=== PATIENT | male | born 1955 | race Caucasian/White ===

== ENCOUNTER 2018-07-03 05:40 | Inpatient (IN) | payer BC ==
[2018-06-28 17:18] LABS: BILIRUBIN,URINE NEGATIVE (NEGATIVE); BLOOD, URINE NEGATIVE (NEGATIVE); CLARITY/URINE CLEAR (CLEAR); COLOR,URINE YELLOW (YELLOW); GLUCOSE,URINE NEGATIVE (NEGATIVE); KETONES,URINE NEGATIVE (NEGATIVE); LEUKOCYTE ESTERASE ,URINE NEGATIVE (NEGATIVE); NITRITE, URINE NEGATIVE (NEGATIVE); PH,URINE 6.5 (5.0-8.0); PROTEIN URINE NEGATIVE (NEGATIVE); UROBILINOGEN,URINE 0.2 (0.2-1.0)
[2018-06-28 17:28] LABS: CALCIUM 9.3 mg/dL (8.4-11.0); CREATININE 0.84 mg/dL (0.55-1.30); POTASSIUM 4.2 mmol/L (3.5-5.1)
[2018-06-28 17:40] LABS: PROTHROMBIN TIME 9.8 SECS (9.5-12.5)
[2018-06-28 17:58] LABS: BASOPHILS # (AUTO) 0.1 K/uL (0.0-0.2); BASOPHILS % (AUTO) 0.8 % (0.0-2.0); EOSINOPHILS # (AUTO) 0.3 K/uL (0.0-0.4); EOSINOPHILS % (AUTO) 3.7 % (0.0-4.0); HEMATOCRIT 42.2 % (36-54); HEMOGLOBIN 13.6 g/dL (14.0-18.0); LYMPHOCYTES # (AUTO) 2.4 K/uL (1.0-5.5); LYMPHOCYTES % (AUTO) 31.6 % (20.5-51.5); MEAN CORPUSCULAR HEMOGLOBIN 32 pg (27-31); MEAN CORPUSCULAR HGB CONC 32 % (32-36); MEAN CORPUSCULAR VOLUME 98 fL (79.0-98.0); MONOCYTES % (AUTO) 12.5 % (1.7-9.3); NEUTROPHILS # (AUTO) 3.9 K/uL (1.8-7.7); NEUTROPHILS % (AUTO) 51.4 % (40.0-70.0); PLATELET COUNT (AUTO) 236 K/uL (130-430); RED BLOOD CELL COUNT(AUTO) 4.31 MIL/uL (4.2-6.2); RED CELL DISTRIBUTION WIDTH 12.6 % (9.0-15.0); WHITE BLOOD COUNT (AUTO) 7.7 K/uL (4.8-10.8)
[~2018-07-03] VITALS: Ht 180.3 cm; Wt 95.3 kg
[2018-07-03] MEDS ORDERED: PRAV40TA PO (06:20)
[2018-07-03] MEDS ORDERED: oxyCODONE HCL 10 MG TAB.ER.12H PO ONE ×2 (06:30→06:38)
[2018-07-03] MEDS ORDERED: ACETAMINOPHEN 500 MG TABLET PO ONE (06:30)
[2018-07-03] MEDS ORDERED: TRANEXAMIC ACID 650 MG TABLET PO ONE (06:30)
[2018-07-03] MEDS ORDERED: GABAPENTIN 300 MG CAPSULE PO ONE (06:30)
[2018-07-03] MEDS ORDERED: CEFAZOLIN 2 GM IVPB PREMIX 50 ML IV ONE ×2 (06:30→06:37)
[2018-07-03] MEDS ORDERED: CELECOXIB 200 MG CAPSULE PO ONE (06:30)
[2018-07-03] MEDS ORDERED: NACL 0.9% 1,000 ML IV ONE (06:30)
[2018-07-03] MEDS ORDERED: ACETAMINOPHEN 500 MG TABLET ONE (06:37)
[2018-07-03] MEDS ORDERED: CELECOXIB 200 MG CAPSULE ONE (06:38)
[2018-07-03] MEDS ORDERED: TRANEXAMIC ACID 650 MG TABLET ONE (06:39)
[2018-07-03] MEDS ORDERED: GABAPENTIN 300 MG CAPSULE ONE (06:39)
[2018-07-03] MEDS ORDERED: NS 50 ML BAG IV ONE (06:55)
[2018-07-03] MEDS ORDERED: fentaNYL CITRATE 250 MCG/5 ML AMP IV ONE (06:55)
[2018-07-03] MEDS ORDERED: ATROPINE SULFATE 0.4 MG/ML VIAL IVP ONE (06:55)
[2018-07-03] MEDS ORDERED: ROPIVACAINE HCL/PF 0.2% (NAROPIN) 200 ML PLAST..BAG EP ONE (06:55)
[2018-07-03] MEDS ORDERED: ROCURONIUM BROMIDE 10 MG/ML (ZEMURON) IV ONE (06:55)
[2018-07-03] MEDS ORDERED: PROPOFOL 200MG/ 20ML VIAL (DIPRIVAN) IV ONE (06:55)
[2018-07-03] MEDS ORDERED: DEXAMETHASONE SOD PHOSPHATE 4 MG/ML VIAL IVP ONE (06:55)
[2018-07-03] MEDS ORDERED: MIDAZOLAM HCL 5 MG/5 ML VIAL IVP ONE (06:55)
[2018-07-03] MEDS ORDERED: MORPHINE SULFATE 10MG/10ML PF AMP EP ONE (06:55)
[2018-07-03] MEDS ORDERED: KETOROLAC TROMETHAMINE 30 MG VIAL IVP ONE (06:55)
[2018-07-03] MEDS ORDERED: TRANEXAMIC ACID 1,000 MG/10 ML VIAL IV ONE (06:55)
[2018-07-03] MEDS ORDERED: LR 1,000 ML IV.SOLN IV ONE (06:55)
[2018-07-03] MEDS ORDERED: SEVOFLURANE 15 MIN GAS INH ONE (06:55)
[2018-07-03] MEDS ORDERED: NORMAL SALINE 10 ML VIAL IVP ONE (06:55)
[2018-07-03] MEDS ORDERED: ROPIVACAINE HCL/PF 5 MG/ML 0.5% 30 ML VIAL INJ ONE (06:55)
[2018-07-03] MEDS ORDERED: EPINEPHrine 1 MG/ML AMP IV ONE (06:55)
[2018-07-03] MEDS ORDERED: POLYMYXIN 500,000/BACIT.10,000 UNITS in NS IRR 1 L IR ONE (07:04)
[2018-07-03] MEDS ORDERED: LR 1,000 ML IV SCH (08:24)
[2018-07-03] MEDS ORDERED: ROPIVACAINE 0.2% 100 ML INJ SCH (08:24)
[2018-07-03] MEDS ORDERED: HYDROmorphone 1 MG INJ. 1 MG/ML AMPUL IVP PRN (08:30)
[2018-07-03] MEDS ORDERED: MEPERIDINE HCL/PF 25 MG/ML DISP.SYRIN IVP PRN (08:30)
[2018-07-03] MEDS ORDERED: HYDROcodone/ACETAMIN 10-325 MG TAB PO PRN ×2 (08:30)
[2018-07-03] MEDS ORDERED: HYDROmorphone 2 MG/ML VIAL IVP PRN ×2 (08:30)
[2018-07-03] MEDS ORDERED: KETOROLAC TROMETHAMINE 15 MG VIAL IVP PRN (09:15)
[2018-07-03] MEDS ORDERED: PROMETHAZINE HCL 25 MG/ML AMP IVP PRN (09:15)
[2018-07-03] MEDS ORDERED: DIPHENHYDRAMINE HCL 25 MG CAPSULE PO PRN (09:15)
[2018-07-03] MEDS ORDERED: MORPHINE 4 MG/ML INJ. SYRINGE IVP PRN (09:15)
[2018-07-03] MEDS ORDERED: ONDANSETRON HCL 4 MG/2 ML VIAL IVP PRN (09:15)
[2018-07-03] MEDS ORDERED: SENNOSIDES 8.6 MG TABLET PO PRN (09:15)
[2018-07-03] MEDS ORDERED: oxyCODONE HCL 5 MG TABLET PO PRN (09:15)
[2018-07-03] MEDS ORDERED: KETOROLAC TROMETHAMINE 30 MG VIAL IVP PRN (09:15)
[2018-07-03] MEDS ORDERED: HYDROmorphone 2 MG/ML VIAL ONE (10:03)
[2018-07-03 10:42] VITALS: BP_SYST 115
[2018-07-03] MEDS: D5LR 1,000 ML IV SCH ×2 (11:44→22:34)
[2018-07-03] MEDS: ROPIVACAINE 0.2% 550 ML INJ SCH (12:03)
[2018-07-03] MEDS: CEFAZOLIN 1 GM IVPB PREMIX 50 ML IV SCH ×2 (13:48→21:18)
[2018-07-03] MEDS: ACETAMINOPHEN 500 MG TABLET PO SCH ×2 (15:52→21:11)
[2018-07-03] MEDS ORDERED: RIVAROXABAN 10 MG TABLET PO ONE (16:00)
[2018-07-03 16:20] VITALS: BP_SYST 122
[2018-07-03 20:00] VITALS: BP_SYST 124
[2018-07-03] MEDS: GABAPENTIN 300 MG CAPSULE PO SCH (21:10)
[2018-07-03] MEDS: CELECOXIB 200 MG CAPSULE PO SCH (21:10)
[2018-07-03] MEDS: oxyCODONE HCL 5 MG TABLET PO PRN (23:21)
[2018-07-04 00:37] VITALS: BP_SYST 117
[2018-07-04] MEDS: D5LR 1,000 ML IV SCH ×2 (05:15→15:15)
[2018-07-04] MEDS: CEFAZOLIN 1 GM IVPB PREMIX 50 ML IV SCH (05:25)
[2018-07-04 06:40] LABS: CALCIUM 8.4 mg/dL (8.4-11.0); CREATININE 0.85 mg/dL (0.55-1.30); POTASSIUM 3.9 mmol/L (3.5-5.1)
[2018-07-04 06:52] LABS: BASOPHILS % (AUTO) 0.1 % (0.0-2.0); EOSINOPHILS % (AUTO) 0.1 % (0.0-4.0); HEMATOCRIT 33.3 % (36-54); HEMOGLOBIN 11.1 g/dL (14.0-18.0); LYMPHOCYTES # (AUTO) 1.8 K/uL (1.0-5.5); LYMPHOCYTES % (AUTO) 12.5 % (20.5-51.5); MEAN CORPUSCULAR HEMOGLOBIN 33 pg (27-31); MEAN CORPUSCULAR HGB CONC 33 % (32-36); MEAN CORPUSCULAR VOLUME 98 fL (79.0-98.0); MONOCYTES # (AUTO) 1.5 K/uL (0.0-1.0); MONOCYTES % (AUTO) 10.4 % (1.7-9.3); NEUTROPHILS # (AUTO) 11.3 K/uL (1.8-7.7); NEUTROPHILS % (AUTO) 76.9 % (40.0-70.0); PLATELET COUNT (AUTO) 200 K/uL (130-430); RED BLOOD CELL COUNT(AUTO) 3.39 MIL/uL (4.2-6.2); RED CELL DISTRIBUTION WIDTH 12.7 % (9.0-15.0); WHITE BLOOD COUNT (AUTO) 14.6 K/uL (4.8-10.8)
[2018-07-04 08:00] VITALS: BP_SYST 139
[2018-07-04] MEDS: SIMVASTATIN 20 MG TABLET PO SCH (08:37)
[2018-07-04] MEDS: CELECOXIB 200 MG CAPSULE PO SCH ×2 (08:37→21:19)
[2018-07-04] MEDS: ACETAMINOPHEN 500 MG TABLET PO SCH ×3 (08:38→21:19)
[2018-07-04] MEDS: RIVAROXABAN 10 MG TABLET PO SCH (08:39)
[2018-07-04] MEDS: ROPIVACAINE 0.2% 550 ML INJ SCH (09:15)
[2018-07-04 12:50] VITALS: BP_SYST 107
[2018-07-04 16:42] VITALS: BP_SYST 114
[2018-07-04 20:00] VITALS: BP_SYST 117
[2018-07-04] MEDS: GABAPENTIN 300 MG CAPSULE PO SCH (21:19)
[2018-07-05 01:15] VITALS: BP_SYST 108
[2018-07-05] MEDS: D5LR 1,000 ML IV SCH (01:15)
[2018-07-05 06:55] LABS: BASOPHILS # (AUTO) 0.2 K/uL (0.0-0.2); BASOPHILS % (AUTO) 1.8 % (0.0-2.0); EOSINOPHILS # (AUTO) 0.2 K/uL (0.0-0.4); EOSINOPHILS % (AUTO) 1.8 % (0.0-4.0); HEMATOCRIT 31.9 % (36-54); HEMOGLOBIN 10.4 g/dL (14.0-18.0); LYMPHOCYTES # (AUTO) 1.8 K/uL (1.0-5.5); LYMPHOCYTES % (AUTO) 16.8 % (20.5-51.5); MEAN CORPUSCULAR HEMOGLOBIN 32 pg (27-31); MEAN CORPUSCULAR HGB CONC 33 % (32-36); MEAN CORPUSCULAR VOLUME 99 fL (79.0-98.0); MONOCYTES # (AUTO) 1.3 K/uL (0.0-1.0); MONOCYTES % (AUTO) 12.3 % (1.7-9.3); NEUTROPHILS # (AUTO) 7.4 K/uL (1.8-7.7); NEUTROPHILS % (AUTO) 67.3 % (40.0-70.0); PLATELET COUNT (AUTO) 175 K/uL (130-430); RED BLOOD CELL COUNT(AUTO) 3.23 MIL/uL (4.2-6.2); RED CELL DISTRIBUTION WIDTH 12.6 % (9.0-15.0)
[2018-07-05 07:05] LABS: CALCIUM 8.7 mg/dL (8.4-11.0); CREATININE 0.81 mg/dL (0.55-1.30)
[2018-07-05 07:18] LABS: WHITE BLOOD COUNT (AUTO) 10.9 K/uL (4.8-10.8)
[2018-07-05 08:14] VITALS: BP_SYST 145
[2018-07-05] MEDS: CELECOXIB 200 MG CAPSULE PO SCH ×2 (09:15→20:26)
[2018-07-05] MEDS: ROPIVACAINE 0.2% 550 ML INJ SCH (09:15)
[2018-07-05] MEDS: SIMVASTATIN 20 MG TABLET PO SCH (09:16)
[2018-07-05] MEDS: oxyCODONE HCL 5 MG TABLET PO PRN ×3 (09:16→23:17)
[2018-07-05] MEDS: ACETAMINOPHEN 500 MG TABLET PO SCH ×3 (09:17→20:28)
[2018-07-05 10:37] LABS: BASOPHILS % (AUTO) 0.2 % (0.0-2.0); EOSINOPHILS # (AUTO) 0.2 K/uL (0.0-0.4); EOSINOPHILS % (AUTO) 1.3 % (0.0-4.0); HEMOGLOBIN 9.9 g/dL (14.0-18.0); LYMPHOCYTES # (AUTO) 1.7 K/uL (1.0-5.5); LYMPHOCYTES % (AUTO) 14.7 % (20.5-51.5); MEAN CORPUSCULAR HEMOGLOBIN 30 pg (27-31); MEAN CORPUSCULAR HGB CONC 31 % (32-36); MEAN CORPUSCULAR VOLUME 98 fL (79.0-98.0); MONOCYTES # (AUTO) 1.3 K/uL (0.0-1.0); MONOCYTES % (AUTO) 10.8 % (1.7-9.3); NEUTROPHILS # (AUTO) 8.4 K/uL (1.8-7.7); PLATELET COUNT (AUTO) 174 K/uL (130-430); RED BLOOD CELL COUNT(AUTO) 3.26 MIL/uL (4.2-6.2); RED CELL DISTRIBUTION WIDTH 12.9 % (9.0-15.0); WHITE BLOOD COUNT (AUTO) 11.6 K/uL (4.8-10.8)
[2018-07-05 11:01] LABS: CALCIUM 8.4 mg/dL (8.4-11.0); CREATININE 0.94 mg/dL (0.55-1.30); POTASSIUM 3.8 mmol/L (3.5-5.1)
[2018-07-05 11:06] LABS: ALBUMIN 2.9 g/dL (3.4-4.8); TOTAL BILIRUBIN 0.4 mg/dL (0.0-1.0)
[2018-07-05] MEDS: RIVAROXABAN 10 MG TABLET PO SCH (11:09)
[2018-07-05 12:34] VITALS: BP_SYST 122
[2018-07-05 16:16] VITALS: BP_SYST 116
[2018-07-05 20:00] VITALS: BP_SYST 115
[2018-07-06] VITALS (10 sets, daily range): BP systolic 84–140
[2018-07-06 07:23] LABS: BASOPHILS # (AUTO) 0.1 K/uL (0.0-0.2); BASOPHILS % (AUTO) 0.6 % (0.0-2.0); EOSINOPHILS # (AUTO) 0.1 K/uL (0.0-0.4); EOSINOPHILS % (AUTO) 1.5 % (0.0-4.0); HEMATOCRIT 29.5 % (36-54); LYMPHOCYTES # (AUTO) 1.3 K/uL (1.0-5.5); LYMPHOCYTES % (AUTO) 13.8 % (20.5-51.5); MEAN CORPUSCULAR HEMOGLOBIN 33 pg (27-31); MEAN CORPUSCULAR HGB CONC 34 % (32-36); MEAN CORPUSCULAR VOLUME 98 fL (79.0-98.0); MONOCYTES # (AUTO) 1.2 K/uL (0.0-1.0); MONOCYTES % (AUTO) 12.5 % (1.7-9.3); NEUTROPHILS # (AUTO) 6.7 K/uL (1.8-7.7); NEUTROPHILS % (AUTO) 71.6 % (40.0-70.0); PLATELET COUNT (AUTO) 172 K/uL (130-430); RED BLOOD CELL COUNT(AUTO) 3.02 MIL/uL (4.2-6.2); RED CELL DISTRIBUTION WIDTH 12.9 % (9.0-15.0); WHITE BLOOD COUNT (AUTO) 9.4 K/uL (4.8-10.8)
[2018-07-06 07:30] LABS: CALCIUM 8.7 mg/dL (8.4-11.0); CREATININE 0.88 mg/dL (0.55-1.30); POTASSIUM 4.1 mmol/L (3.5-5.1)
[2018-07-06] MEDS: CELECOXIB 200 MG CAPSULE PO SCH (08:37)
[2018-07-06] MEDS: SIMVASTATIN 20 MG TABLET PO SCH (08:38)
[2018-07-06] MEDS: ACETAMINOPHEN 500 MG TABLET PO SCH ×3 (08:38→20:21)
[2018-07-06] MEDS: oxyCODONE HCL 5 MG TABLET PO PRN ×2 (10:46→22:29)
[2018-07-06] MEDS: RIVAROXABAN 10 MG TABLET PO SCH (12:34)
[2018-07-06] MEDS ORDERED: MULTIVITS,CA,MINERALS/IRON/FA 1 TABLET PO ONE (16:30)
[2018-07-06] MEDS ORDERED: MAGNESIUM OXIDE 400 MG TABLET PO ONE (16:30)
[2018-07-06] MEDS ORDERED: CHOLECALCIFEROL (VITAMIN D3) 2,000 UNIT TABLET PO ONE (16:30)
[2018-07-06] MEDS: MAGNESIUM OXIDE 400 MG TABLET PO SCH (20:21)
[2018-07-07] VITALS: BP_SYST 131
[2018-07-07] MEDS: oxyCODONE HCL 5 MG TABLET PO PRN ×3 (05:31→16:41)
[2018-07-07 06:57] LABS: BASOPHILS # (AUTO) 0.1 K/uL (0.0-0.2); BASOPHILS % (AUTO) 0.9 % (0.0-2.0); EOSINOPHILS # (AUTO) 0.1 K/uL (0.0-0.4); EOSINOPHILS % (AUTO) 1.4 % (0.0-4.0); HEMATOCRIT 29.2 % (36-54); HEMOGLOBIN 9.7 g/dL (14.0-18.0); LYMPHOCYTES # (AUTO) 1.5 K/uL (1.0-5.5); LYMPHOCYTES % (AUTO) 15.4 % (20.5-51.5); MEAN CORPUSCULAR HEMOGLOBIN 33 pg (27-31); MEAN CORPUSCULAR HGB CONC 33 % (32-36); MEAN CORPUSCULAR VOLUME 99 fL (79.0-98.0); MONOCYTES # (AUTO) 0.8 K/uL (0.0-1.0); MONOCYTES % (AUTO) 7.8 % (1.7-9.3); NEUTROPHILS # (AUTO) 7.5 K/uL (1.8-7.7); NEUTROPHILS % (AUTO) 74.5 % (40.0-70.0); PLATELET COUNT (AUTO) 198 K/uL (130-430); RED BLOOD CELL COUNT(AUTO) 2.96 MIL/uL (4.2-6.2); RED CELL DISTRIBUTION WIDTH 12.5 % (9.0-15.0)
[2018-07-07 07:10] LABS: CALCIUM 8.8 mg/dL (8.4-11.0); CREATININE 0.78 mg/dL (0.55-1.30); FREE T4 (FREE THYROXINE) 0.5 ng/dL (0.6-1.6); THYROID STIMULATING HORMONE 0.84 uIu/mL (0.34-4.82)
[2018-07-07 08:12] VITALS: BP_SYST 118
[2018-07-07] MEDS: SIMVASTATIN 20 MG TABLET PO SCH (08:24)
[2018-07-07] MEDS: ACETAMINOPHEN 500 MG TABLET PO SCH ×3 (08:25→21:09)
[2018-07-07] MEDS: MAGNESIUM OXIDE 400 MG TABLET PO SCH ×2 (08:26→21:09)
[2018-07-07] MEDS: MULTIVITS,CA,MINERALS/IRON/FA 1 TABLET PO SCH (08:26)
[2018-07-07] MEDS: CHOLECALCIFEROL (VITAMIN D3) 2,000 UNIT TABLET PO SCH (08:26)
[2018-07-07] MEDS ORDERED: LORazepam 1 MG TABLET PO PRN (10:00)
[2018-07-07] MEDS ORDERED: MIDODRINE HCL 5 MG TABLET (PROAMATINE) PO ONE (10:15)
[2018-07-07] MEDS ORDERED: FLUDROCORTISONE ACETATE 0.1 MG TABLET( FLORINEF) PO ONE (10:15)
[2018-07-07] MEDS: RIVAROXABAN 10 MG TABLET PO SCH (10:36)
[2018-07-07 12:39] VITALS: BP_SYST 112
[2018-07-07 16:36] VITALS: BP_SYST 128
[2018-07-07 20:00] VITALS: BP_SYST 111
[2018-07-07] MEDS: MIDODRINE HCL 5 MG TABLET (PROAMATINE) PO SCH (21:09)
[2018-07-08 00:23] VITALS: BP_SYST 127
[2018-07-08] MEDS: oxyCODONE HCL 5 MG TABLET PO PRN (03:43)
[2018-07-08 03:45] VITALS: BP_SYST 136
[2018-07-08] MEDS ORDERED: RIVA10TA PO (06:14)
[2018-07-08 08:00] VITALS: BP_SYST 151
[2018-07-08] MEDS ORDERED: FLUDROCORTISONE ACETATE 0.1 MG TABLET( FLORINEF) PO SCH (09:00)
[2018-07-08 09:07] VITALS: BP_SYST 151
[2018-07-08] MEDS: MULTIVITS,CA,MINERALS/IRON/FA 1 TABLET PO SCH (09:10)
[2018-07-08] MEDS: MIDODRINE HCL 5 MG TABLET (PROAMATINE) PO SCH (09:10)
[2018-07-08] MEDS: SIMVASTATIN 20 MG TABLET PO SCH (09:10)
[2018-07-08] MEDS: CHOLECALCIFEROL (VITAMIN D3) 2,000 UNIT TABLET PO SCH (09:10)
[2018-07-08] MEDS: MAGNESIUM OXIDE 400 MG TABLET PO SCH (09:10)
[2018-07-08] MEDS: ACETAMINOPHEN 500 MG TABLET PO SCH (09:11)
[2018-07-08] MEDS: RIVAROXABAN 10 MG TABLET PO SCH (09:12)
== END 2018-07-08 10:10 | DRG 470 ==
LOC: SMU 05:40 → STU 09:24 → SMU 07-05 07:36 → STU 07-05 10:14
PROVIDERS: ADMIT Orthopaedic Surgery; ATTEND Orthopaedic Surgery
PROC: 3E0T3BZ Introduction of Anesthetic Agent into Peripheral Nerves and Plexi, Percutaneous Approach (ICD-10-PCS; 2018-07-03)
PROC: 0SRC0J9 Replacement of Right Knee Joint with Synthetic Substitute, Cemented, Open Approach (ICD-10-PCS; principal; 2018-07-03 07:30)
DX: M17.11 Unilateral primary osteoarthritis, right knee (principal); D62 Acute posthemorrhagic anemia; E78.5 Hyperlipidemia, unspecified; I95.1 Orthostatic hypotension; R56.9 Unspecified convulsions
CPT/HCPCS: 36415; 71046-TC; 80048; 80053; 80061; 81003; 82962; 84439; 84443-TC; 85025; 85610-TC; 85730-TC; 86886; 86900; 86901; 87081; 88305; 88311; 93005; 93306; 93880; 95816; 97110-GP; 97116-GP; 97530-GP; C1713; C1776; G0378; J0171; J0461; J0690; J1100; J1170; J1885; J2250; J2274; J2704; J2795; J3010; J3490; J7120